=== PATIENT | female | born 1950 | race African-American/Black ===

== ENCOUNTER 2017-06-07 11:49 | Emergency (ER) | payer OTHER ==
[~2017-06-07] VITALS: Ht 160 cm; Wt 74.8 kg
[~2017-06-07 11:49] MED LIST: ALDACTONE25 MG PO; AMBIEN 10 MG TA10 MG PO; AMBIEN 5 MG TABL5 M1 PO; ATIVAN0.5 MG PO; ATIVAN1 MG PO; AZITHROMYCIN 2250 MG PO; CEFPODOXIME PR200 M1 PO; COREG6.25 MG PO; COZAAR 25 MG TA25 M1 PO; DARVOCET-N 1001 EACH PO; ESZOPICLONE1 MG; FUROSEMIDE 40 M40 M1 PO; MELATONIN1 MG PO; METFORMIN HCL500 MG PO; NOHOMEMEDICATIONS; PERCOCET PO; TRAZODONE HCL50 MG PO; XANAX 0.5 MG0.5 MG PO; ZESTRIL5 MG PO; ZOFRAN ODT4 MG SUBLING
[2017-06-07 12:28] LABS: CALCIUM 9.4 mg/dL (8.5-10.1); CREATININE 0.8 mg/dL (0.6-1.0); POTASSIUM 3.6 mmol/L (3.5-5.1)
[2017-06-07] MEDS ORDERED: QUETIAPINE FUM100 MG PO ×2 (12:28)
[2017-06-07] MEDS ORDERED: REMERON15 MG PO (12:29)
[2017-06-07] MEDS ORDERED: HYDROCODONE-AP1 EAC6 PO (12:30)
[2017-06-07] MEDS ORDERED: PREDNISONE 20 M20 MG PO (12:30)
[2017-06-07 12:32] LABS: HEMATOCRIT 36.2 % (37.0-47.0); HEMOGLOBIN 11.6 gm/dL (12.0-15.0); MCH 24.8 pg (26.0-34.0); MCHC 32.1 g/dL (28.0-37.0); MCV 77.3 fL (80.0-100.0); RBC 4.69 mil/uL (4.20-5.00); RDW 17.9 % (10.5-14.5)
== END 2017-06-07 13:00 | disposition home or self-care (01) ==
LOC: ER 11:49
PROVIDERS: Physician Assistant
DX: E05.00 Thyrotoxicosis with diffuse goiter without thyrotoxic crisis or storm (principal); I50.9 Heart failure, unspecified; Z90.49 Acquired absence of other specified parts of digestive tract; Z86.718 Personal history of other venous thrombosis and embolism; Z88.8 Allergy status to other drugs, medicaments and biological substances

== ENCOUNTER 2017-07-01 18:53 | Emergency (ER) | payer OTHER ==
[~2017-07-01] VITALS: Ht 162.6 cm; Wt 74.4 kg
--- NOTE | ~2017-07-01 | EKG ---
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 : 1950 Requested By: Afia Solares Order Number: [id number] MD: Curtis Davila Measurements Intervals [place] Rate: 68 P: 15 NV: 170 QRS: 38 QRSD: 83 T: 47 QT: 401 QTc: 427 Interpretive Statements Sinus rhythm Normal tracing No previous ECG available for comparison Electronically Signed On 07-02-2017 7:29:55 [employer] by Curtis Davila [email or web address] <ELECTRONICALLY SIGNED> By: Curtis Davila MD, [facility] 07/02/17 0729 41 41 Curtis Davila MD, FACC /EPI
[~2017-07-01 18:53] MED LIST changes: +HYDROCODONE-AP1 EAC6 PO; +PREDNISONE 20 M20 MG PO; +QUETIAPINE FUM100 MG PO; +REMERON15 MG PO
[2017-07-01 20:06] LABS: ABSOLUTE NEUTROPHILS 4.3 thou/uL (1.4-8.2); BASOPHILS 0.7 % (0.0-2.0); EOSINOPHILS 0.6 % (0.0-3.0); HEMATOCRIT 34.8 % (37.0-47.0); HEMOGLOBIN 11.4 gm/dL (12.0-15.0); LYMPHOCYTES 25.8 % (24.0-44.0); MCHC 32.7 g/dL (28.0-37.0); MCV 76.7 fL (80.0-100.0); MONOCYTES 10.8 % (1.0-8.0); PLATELET COUNT 192 thou/uL (150-400); POLYS 62.1 % (36.0-66.0); RBC 4.54 mil/uL (4.20-5.00); RDW 17.7 % (10.5-14.5); WBC 6.9 thou/uL (4.0-11.0)
[2017-07-01 20:14] LABS: ANION GAP 9 mmol/L (7-16); BUN 10 mg/dL (7-18); CALCIUM 9.3 mg/dL (8.5-10.1); CHLORIDE 101 mmol/L (98-107); CO2 28 mmol/L (21-32); CREATININE 0.8 mg/dL (0.6-1.0); GLUCOSE 129 mg/dL (74-106); POTASSIUM 3.5 mmol/L (3.5-5.1); SODIUM 138 mmol/L (136-145)
[2017-07-01 20:23] LABS: SGOT 18 U/L (15-37); SGPT 28 U/L (30-65); TOTAL BILIRUBIN 0.3 mg/dL (<0.1-1.0); TOTAL PROTEIN 8.2 g/dL (6.4-8.2); TROPONIN-I < 0.04 ng/mL (<0.06)
[2017-07-01] MEDS ORDERED: MOBIC7.5 MG PO (21:19)
[2017-07-01] MEDS ORDERED: PREDNISONE 20 M20 MG PO (21:19)
[2017-07-01 22:08] VITALS: BP 131/84
== END 2017-07-01 22:09 | disposition home or self-care (01) ==
LOC: ER 18:53
PROVIDERS: Nurse Practitioner Family
DX: R09.1 Pleurisy (principal); F41.9 Anxiety disorder, unspecified; Z91.018 Allergy to other foods

== ENCOUNTER 2017-07-04 05:41 | Emergency (ER) | payer OTHER ==
[~2017-07-04] VITALS: Ht 162.6 cm; Wt 72.6 kg
--- NOTE | ~2017-07-04 | EKG ---
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
[~2017-07-04 05:41] MED LIST changes: +MOBIC7.5 MG PO
[2017-07-04] MEDS ORDERED: ATIVAN0.5 MG PO (06:00)
[2017-07-04] MEDS ORDERED: SENNA LAX8.6 MG PO (06:02)
[2017-07-04] MEDS ORDERED: MIRALAX17 GM PO (06:02)
[2017-07-04 06:17] LABS: ABSOLUTE NEUTROPHILS 4.8 thou/uL (1.4-8.2); BASOPHILS 0.2 % (0.0-2.0); EOSINOPHILS 0.1 % (0.0-3.0); HEMATOCRIT 33.1 % (37.0-47.0); HEMOGLOBIN 10.7 gm/dL (12.0-15.0); LYMPHOCYTES 28.8 % (24.0-44.0); MCH 24.9 pg (26.0-34.0); MCHC 32.3 g/dL (28.0-37.0); MCV 77.1 fL (80.0-100.0); MONOCYTES 8.6 % (1.0-8.0); PLATELET COUNT 201 thou/uL (150-400); POLYS 62.3 % (36.0-66.0); RDW 18.1 % (10.5-14.5); WBC 7.7 thou/uL (4.0-11.0)
[2017-07-04 06:25] LABS: ANION GAP 8 mmol/L (7-16); BUN 19 mg/dL (7-18); CALCIUM 9.2 mg/dL (8.5-10.1); CHLORIDE 104 mmol/L (98-107); CO2 29 mmol/L (21-32); CREATININE 0.8 mg/dL (0.6-1.0); GLUCOSE 129 mg/dL (74-106); POTASSIUM 3.7 mmol/L (3.5-5.1); SODIUM 141 mmol/L (136-145)
[2017-07-04 06:33] LABS: ALBUMIN 3.8 g/dL (3.4-5.0); MAGNESIUM 2.5 mg/dL (1.8-2.4); SGOT 15 U/L (15-37); SGPT 27 U/L (30-65); TOTAL BILIRUBIN 0.2 mg/dL (<0.1-1.0); TOTAL PROTEIN 7.8 g/dL (6.4-8.2); TROPONIN-I < 0.04 ng/mL (<0.06)
[2017-07-04 06:35] LABS: D-DIMER 0.57 ug/mLFEU (0.19-0.50); INR 1.1; PROTIME 11.1 Seconds (9.3-11.4)
[2017-07-04 07:14] VITALS: BP 165/78
[2017-07-04] MEDS ORDERED: NORCO 5-325 TA1 EACH PO (07:19)
== END 2017-07-04 08:02 | disposition home or self-care (01) ==
LOC: ER 05:41
PROVIDERS: Emergency Medicine
DX: R07.89 Other chest pain (principal); R05 Cough; I10 Essential (primary) hypertension; E05.90 Thyrotoxicosis, unspecified without thyrotoxic crisis or storm; I50.9 Heart failure, unspecified; I82.409 Acute embolism and thrombosis of unspecified deep veins of unspecified lower extremity; Z90.49 Acquired absence of other specified parts of digestive tract; Z91.018 Allergy to other foods

== ENCOUNTER → 2017-09-20 | Outpatient (CLI) | payer OTHER ==
[~2017-09-20] MED LIST changes: +MIRALAX17 GM PO; +NORCO 5-325 TA1 EACH PO; +SENNA LAX8.6 MG PO
== END ==
LOC: SLEEPLAB 09-15 15:30
DX: G47.30 Sleep apnea, unspecified (principal)